=== PATIENT | female | born 1980 | race Caucasian/White ===

== ENCOUNTER 2018-01-09 17:52 | Emergency (ER) | payer OTHER, MEDICAID, SELFPAY | END 2018-01-09 19:00 | disposition left against medical advice (07) | LOC: ED 17:56 | DX: F41.0 Panic disorder [episodic paroxysmal anxiety] (principal) | CPT/HCPCS: 99281 ==

== ENCOUNTER → 2018-08-31 09:34 | Outpatient (CLI) | payer OTHER, MEDICAID, SELFPAY ==
[2018-08-31 14:03] LABS: Urine N gonorrhoeae NOT DETECTED
[2018-08-31 14:14] LABS: Urine Chlamydia NOT DETECTED
[2018-09-03 08:26] LABS: Hepatitis A Antibody IgM NONREACTIVE (NONREACTIVE); Hepatitis Acute Panel Interp 0.01; Hepatitis B Core Antibody IgM NONREACTIVE (NONREACTIVE); Hepatitis B Surface Antigen NONREACTIVE (NONREACTIVE); Hepatitis C Antibody NONREACTIVE
[2018-09-03 13:26] LABS: RPR Screen Nonreactive (Nonreactive)
[2018-09-06 17:45] LABS: HIV Ag/Ab, 4th Gen Nonreactive (Nonreactive)
== END ==
PROVIDERS: Visit Provider Registered Nurse
DX: Z11.3 Encounter for screening for infections with a predominantly sexual mode of transmission (principal)
CPT/HCPCS: 36415; 80074; 86592; 86703; 87491; 87591

== ENCOUNTER → 2018-11-15 10:57 | Outpatient (CLI) | payer OTHER, MEDICAID, SELFPAY ==
[2018-11-15 14:21] LABS: Bacteria Urine None Seen; RBC Urine None Seen (0-5/HPF)
[2018-11-15 14:27] LABS: Appearance Urine UA CLEAR; Bilirubin Urine UA NEGATIVE (NEGATIVE); Color Urine UA ORANGE; Glucose Urine UA TRACE g/dL (Negative); Ketones Urine UA NEGATIVE (NEGATIVE); Leukocyte Esterase Urine UA NEGATIVE (NEGATIVE); Nitrite Urine UA POSITIVE (Negative); Occult Blood Urine UA NEGATIVE (Negative); Protein Urine UA 1+ (Negative)
[2018-11-15 15:17] LABS: WBC Urine 0-1/HPF (0-5/HPF)
[2018-11-15 15:18] LABS: Culture Indicated Urine Specimen Cultured
== END ==
PROVIDERS: PCP Registered Nurse; Visit Provider Registered Nurse
DX: R30.0 Dysuria (principal); R39.15 Urgency of urination
CPT/HCPCS: 81001; 87086

== ENCOUNTER → 2018-11-27 17:23 | Outpatient (CLI) | payer OTHER, MEDICAID, SELFPAY ==
[2018-11-27 17:36] LABS: Appearance Urine UA CLOUDY; Bilirubin Urine UA NEGATIVE (NEGATIVE); Color Urine UA YELLOW; Glucose Urine UA NEGATIVE (Negative); Ketones Urine UA NEGATIVE (NEGATIVE); Leukocyte Esterase Urine UA 2+ (NEGATIVE); Nitrite Urine UA NEGATIVE (Negative); Occult Blood Urine UA 1+ (Negative); Protein Urine UA NEGATIVE (Negative); Urobilinogen Urine UA 0.2 E.U./dL (0.2)
[2018-11-27 18:18] LABS: Bacteria Urine Occasional (0-1); Culture Indicated Urine Specimen Cultured; RBC Urine 5-10/HPF (0-5/HPF); Squamous Epithelial Cell Urine 0-1 /HPF (0-5/HPF); WBC Urine >100/HPF (0-5/HPF); pH Urine UA 6.5 (4.5-8.0)
== END ==
PROVIDERS: PCP Registered Nurse; Visit Provider Registered Nurse
DX: N39.0 Urinary tract infection, site not specified (principal)
CPT/HCPCS: 81001; 87086